=== PATIENT | male | born 1940 | race Asian ===

== ENCOUNTER 2019-09-07 03:37 | Inpatient (IN) | payer MEDICARE, OTHER ==
[~2019-09-07] VITALS: Ht 172.7 cm; Wt 60.5 kg
[2019-09-07] MEDS ORDERED: INSU100I21 SQ (03:56)
[2019-09-07] MEDS ORDERED: DULA1.5P SQ (03:56)
[2019-09-07] MEDS ORDERED: DUTA0.5C18 PO (03:56)
[2019-09-07] MEDS ORDERED: TAMS-13 PO (03:56)
[2019-09-07] MEDS ORDERED: HYDR100T28 PO (03:56)
[2019-09-07] MEDS ORDERED: METO200T49 PO (03:56)
[2019-09-07] MEDS ORDERED: LINA290C PO (03:56)
[2019-09-07] MEDS ORDERED: MELO-106 PO (03:56)
[2019-09-07] MEDS ORDERED: ICOS1CAP PO (03:56)
[2019-09-07] MEDS ORDERED: SIMV-43 PO (03:56)
[2019-09-07] MEDS ORDERED: FLUO15CR35 TP (03:56)
[2019-09-07] MEDS ORDERED: CANA300T PO (03:56)
[2019-09-07] MEDS ORDERED: AMLO10TA55 PO (03:56)
[2019-09-07] MEDS ORDERED: INSU100I3 SQ (03:56)
[2019-09-07] MEDS ORDERED: PRAZ2CAP2 PO (03:56)
[2019-09-07] MEDS ORDERED: LOSA100T58 PO (03:56)
[2019-09-07 04:34] LABS: EOSINOPHILS % (AUTO) 6.9 % (1.0-6.0); HEMATOCRIT 39.6 % (41-53); HEMOGLOBIN 12.9 g/dL (13.5-17.5); LYMPHOCYTES # (AUTO) 1.6 K/uL (1.0-4.8); LYMPHOCYTES % (AUTO) 14.5 % (22.0-44.0); MEAN CORPUSCULAR HGB CONC 32.6 G/dL (31.0-37.0); MEAN CORPUSCULAR VOLUME 80 fL (80-100); MONOCYTES # (AUTO) 0.6 K/uL (0.1-1.0); MONOCYTES % (AUTO) 5.2 % (2.0-9.0); NEUTROPHILS # (AUTO) 7.8 K/uL (1.8-7.7); NEUTROPHILS % (AUTO) 72.4 % (40.0-70.0); PLATELET COUNT (AUTO) 225 K/uL (150-450); RED BLOOD CELL COUNT(AUTO) 4.97 MIL/uL (4.50-5.90); RED CELL DISTRIBUTION WIDTH 14.6 % (11.5-14.5)
[2019-09-07 04:43] LABS: PROTHROMBIN TIME 10.1 SEC (9.4-11.6)
[2019-09-07] MEDS ORDERED: DEXTROSE 50%-WATER 25 GM/50 ML SYRINGE IVP ONE ×2 (04:45→07:30)
[2019-09-07] MEDS ORDERED: DEXTROSE 5%-0.9% SODIUM CHL 1,000 ML IV ONE (04:45)
[2019-09-07 05:00] LABS: ALANINE AMINOTRANSFERASE 20 U/L (12-78); ALBUMIN 3.5 g/dL (3.4-5.0); ALKALINE PHOSPHATASE 76 U/L (46-116); ANION GAP 9 mmol/L (8-16); ASPARTATE AMINOTRANSFERASE 16 U/L (15-37); BILIRUBIN,TOTAL 0.6 mg/dL (0.1-1.0); CALCIUM, TOTAL 9.1 mg/dL (8.8-10.5); CARBON DIOXIDE 29 mmol/L (22-29); CHLORIDE 109 mmol/L (98-107); CREATINE KINASE, TOTAL ONLY 52 U/L (39-308); CREATININE 1.13 mg/dL (0.60-1.30); SODIUM SERUM 147 mmol/L (136-145); TOTAL PROTEIN, SERUM 7.1 g/dL (6.4-8.2); UREA NITROGEN, BLOOD 18 mg/dL (7-18)
[2019-09-07 05:00] LABS: GLUCOSE,POINT OF CARE 29 MG/DL (70-110)
[2019-09-07 05:07] LABS: LACTIC ACID 1.4 mmol/L (0.4-2.0)
[2019-09-07 05:10] LABS: GLOMERULAR FILTR. RATE CALC > 60 mL/min (>60)
[2019-09-07 05:12] LABS: GLUCOSE,RANDOM 35 mg/dL (70-110); POTASSIUM 2.8 mmol/L (3.5-5.1)
[2019-09-07] MEDS ORDERED: POTASSIUM CHLORIDE 20 MEQ ER TABLET PO ONE (05:15)
[2019-09-07] MEDS ORDERED: ONDANSETRON HCL 4 MG/2 ML VIAL IVP PRN (06:00)
[2019-09-07] MEDS ORDERED: ACETAMINOPHEN 325 MG TABLET PO PRN ×2 (06:00→07:45)
[2019-09-07] MEDS ORDERED: 0.9% SODIUM CHLORIDE 10 ML SYRINGE IVP PRN (06:00)
[2019-09-07 06:10] LABS: GLUCOSE,POINT OF CARE 155 MG/DL (70-110)
[2019-09-07 06:26] LABS: GLUCOSE,POINT OF CARE 101 MG/DL (70-110)
[2019-09-07] MEDS: POTASSIUM CHL 10 MEQ/WATER 50 ML IV SCH ×4 (06:35→09:46)
[2019-09-07 07:33] LABS: GLUCOSE,POINT OF CARE 55 MG/DL (70-110)
[2019-09-07] MEDS ORDERED: MAGNESIUM HYDROXIDE SUSPENSION 30 ML UDCUP PO PRN (07:45)
[2019-09-07] MEDS ORDERED: POTASSIUM CHL 10 MEQ/WATER 50 ML IV PRN (07:45)
[2019-09-07] MEDS ORDERED: DEXTROSE 50%-WATER 25 GM/50 ML SYRINGE IVP PRN (07:45)
[2019-09-07] MEDS ORDERED: POTASSIUM CHLORIDE 20 MEQ ER TABLET PO PRN (07:45)
[2019-09-07] MEDS ORDERED: DEXTROSE 5%-0.45% SODIUM CHL 1,000 ML IV ONE (07:45)
[2019-09-07] MEDS: HEPARIN SODIUM,PORCINE 5,000 UNITS/ML VIAL SQ SCH ×2 (08:17→16:40)
[2019-09-07] MEDS: ASPIRIN 81 MG CHEWABLE TABLET PO SCH (08:43)
[2019-09-07] MEDS: FAMOTIDINE 20 MG TABLET PO SCH (08:43)
[2019-09-07] MEDS: AmLODIPine BESYLATE 10 MG TABLET PO SCH (08:50)
[2019-09-07] MEDS: LOSARTAN POTASSIUM 50 MG TABLET PO SCH (08:50)
[2019-09-07 09:11] LABS: GLUCOSE,POINT OF CARE 102 MG/DL (70-110)
[2019-09-07 09:11] LABS: GLUCOSE,POINT OF CARE 157 MG/DL (70-110)
[2019-09-07 09:11] LABS: GLUCOSE,POINT OF CARE 189 MG/DL (70-110)
[2019-09-07 09:56] LABS: GLUCOSE,POINT OF CARE 104 MG/DL (70-110)
[2019-09-07 10:47] LABS: GLUCOSE,POINT OF CARE 119 MG/DL (70-110)
[2019-09-07 11:00] VITALS: BP 130/91
[2019-09-07 16:00] VITALS: BP 167/89
[2019-09-07] MEDS: INSULIN LISPRO 100 UNITS/ML SQ PRN (17:43)
[2019-09-07 17:55] LABS: GLUCOMETER DEV NAME(LOC) 5S.2A; GLUCOSE,POINT OF CARE 123 MG/DL (70-110)
[2019-09-07 17:55] LABS: GLUCOMETER DEV NAME(LOC) 5S.2A; GLUCOSE,POINT OF CARE 159 MG/DL (70-110)
[2019-09-07 19:32] VITALS: BP 151/67
[2019-09-07] MEDS ORDERED: TAMSULOSIN HCL 0.4 MG CAPSULE PO SCH (21:00)
[2019-09-07] MEDS ORDERED: ATORVASTATIN CALCIUM 20 MG TABLET PO SCH (21:00)
[2019-09-07 23:24] VITALS: BP 153/63
[2019-09-08] MEDS: HEPARIN SODIUM,PORCINE 5,000 UNITS/ML VIAL SQ SCH ×3 (01:32→15:49)
[2019-09-08 03:37] LABS: GLUCOMETER DEV NAME(LOC) 5S.2A; GLUCOSE,POINT OF CARE 131 MG/DL (70-110)
[2019-09-08 04:15] VITALS: BP 162/72
[2019-09-08 07:30] VITALS: BP 151/78
[2019-09-08 07:40] LABS: GLUCOMETER DEV NAME(LOC) 5S.1; GLUCOSE,POINT OF CARE 132 MG/DL (70-110)
[2019-09-08] MEDS: FAMOTIDINE 20 MG TABLET PO SCH (08:22)
[2019-09-08] MEDS: ASPIRIN 81 MG CHEWABLE TABLET PO SCH (08:22)
[2019-09-08] MEDS: AmLODIPine BESYLATE 10 MG TABLET PO SCH (08:22)
[2019-09-08] MEDS: LOSARTAN POTASSIUM 50 MG TABLET PO SCH (08:22)
[2019-09-08 08:25] LABS: APPEARANCE,URINE CLEAR (CLEAR); BILIRUBIN,URINE NEGATIVE (NEGATIVE); GLUCOSE, URINE (UA) >=1000 mg/dL (NEGATIVE); KETONES,URINE NEGATIVE (NEGATIVE); LEUKOCYTE ESTERASE ,URINE NEGATIVE (NEGATIVE); NITRATE,URINE NEGATIVE (NEGATIVE); OCCULT BLOOD,URINE TRACE (NEGATIVE); PH,URINE 5.5 (5.0-8.0); PROTEIN,URINE SEE CONFIRM (NEGATIVE)
[2019-09-08 08:37] LABS: SULFOSALICYLIC ACID,URINE 3+ (Negative)
[2019-09-08 08:38] LABS: BACTERIA,URINE None Seen /HPF (None Seen); RBC,URINE None Seen /HPF (0-2); SQUAMOUS EPITHELIAL CELL,UR Few /LPF (None Seen); WBC,URINE 0-2 /HPF (0-5)
[2019-09-08 11:36] VITALS: BP 146/70
[2019-09-08] MEDS: INSULIN LISPRO 100 UNITS/ML SQ PRN (12:01)
[2019-09-08 12:08] LABS: GLUCOMETER DEV NAME(LOC) 5S.1; GLUCOSE,POINT OF CARE 262 MG/DL (70-110)
== END 2019-09-08 16:10 | disposition home or self-care (01) | DRG 638 ==
LOC: EMS 03:37 → 5S 04:30
PROVIDERS: ADMIT Internal Medicine; ATTEND Internal Medicine
DX: E11.649 Type 2 diabetes mellitus with hypoglycemia without coma (principal); E87.0 Hyperosmolality and hypernatremia; F03.90 Unspecified dementia, unspecified severity, without behavioral disturbance, psychotic disturbance, mood disturbance, and anxiety; I10 Essential (primary) hypertension; N40.0 Benign prostatic hyperplasia without lower urinary tract symptoms; E11.65 Type 2 diabetes mellitus with hyperglycemia; Z79.4 Long term (current) use of insulin; Z91.14 Patient's other noncompliance with medication regimen; E87.6 Hypokalemia
CPT/HCPCS: 82948; 83605; 83735; 84132; 93005; 99291; J1644; J3480; J7042